=== PATIENT | male | born 1950 | race Caucasian/White ===

== ENCOUNTER 2022-04-04 11:30 | Outpatient (RCR) | payer OTHER, SELFPAY ==
--- NOTE | 2022-02-07 15:08 | ST.OPIE ---
Visit Care Team Role Provider Type Bandar Obrien MD Attending Provider Non-Staff Family Provider Primary Care Provider Referring Provider Specialty: Family Practice Address: [address] , [place], [address] Email: Speech-Language Pathology Initial Evaluation NUTRITION COORDINATOR Motor Speech Evaluation Start: 02/07/22 14:54 Freq: Status: Active Protocol: Document 02/07/22 14:55 ZS (Rec: 02/07/22 15:08 ZS [id number]) Motor Speech Evaluation Session Time Visit Start Time 14:30 Visit Stop Time 14:55 Total Visit Minutes 25 Visit Information Visit Number Initial Evaluation Plan of Care Dates 02/07/2022 - 05/25/2022 Insurance Information [employer] Setting Setting Outpatient Care Next Note Type Next Note Type Treatment Note Patient History Source: [employer] ([employer]). Patient History De is a 71-year-old male who had a stroke on 01/15/22 and was referred to speech therapy due to continued right sided labial weakness. Pt reported weakness and numbness was worse immediately following stroke and had improved, though he is still having difficulty with speech and ROM. Pt added he was having difficulty with swallowing and repeatedly biting his tongue following stroke, but both of these symptoms have resolved at this time. He has an OT evaluation on Friday for his hand and may start receiving PT, but does not currently have PT care established. Referral Referring Physician Dr. Obrien Reason for Referral Right labial weakness/numbness following stroke Mental Status Mental Status Alert,Responsive,Cooperative Subjective Observations Subjective The pt arrived on time accompanied by his , who was not present for the session. Pt agreed to participate in all session activities. Oral Motor Lips Function Moderate Impairment Observation at rest Mild-moderate right drooping Pucker Minimal right drooping Retraction Moderate right weakness Alternating pucker/retraction Moderate right weakness, coordination WNL Involuntary Movement N/A Tongue Function WNL Jaw Function WNL Soft Palate Function WNL Respiration/Phonation Diadochokinetic Rates Speech Intelligibility Awareness/Strategy Use Findings Details Motor Speech Function Moderate Impairment Assessment Details Assessment Completed oral motor assessment with pt. Mild- moderate right-sided labial weakness observed at rest and pt reported reduced sensation on his right side. Pt added he drools about once an hour, always on the right side. Pt added reduced sensation used to contribute to repeated biting of his tongue and difficulty swallowing, though these symptoms have resolved at this point. Tongue elevation was reduced, though WFL. Jaw and tongue strength and ROM were otherwise WNL. Pucker appeared more symmetrical than lip retraction, though minimal right sided weakness was still observed. Intra-oral structures were symmetrical and WNL. Imprecise articulation noted with reduced sensory awareness of lips and right weakness. Provided handout with labial exercises and practiced all exercises. Pt expressed understanding and agreement with POC and demonstrated proficiency in exercises. Recommend speech therapy to improve articulation and labial strength for increased ability to communicate wants and needs, especially in emergency situations as well as for improved comfort with oral intake and saliva management. Prognosis Rehabilitation Potential Good Recommendations Treatment Recommended Yes Frequency 1x/wk Duration 45 minutes Therapy Recommendations Labial exercises to increase right strength and ROM. Short Term Goals 1. Pt will perform exercises to increase strength, coordination, and ROM of lips to improve articulation and increase comfort with oral intake and saliva management. Bee Worker Goals The pt will demonstrate articulatory precision WNL and report saliva management WNL. Patient/Family Education Education Described results of evaluation,Patient Understanding,Patient Demonstration,Patient Needs More Info
--- NOTE | 2022-02-07 15:08 | ST.OPPOC ---
Physical, Occupational & Speech Therapy At [facility] Visit Care Team Role Provider Type Bandar Obrien MD Attending Provider Non-Staff Family Provider Primary Care Provider Referring Provider Address: [address], [place], [address] Speech Pathology Plan of Care Plan of Care Dates 02/07/2022 - 05/25/[address] Obrien Patient History De is a 71-year-old male who had a stroke on 01/15/22 and was referred to speech therapy due to continued right sided labial weakness. Pt reported weakness and numbness was worse immediately following stroke and had improved, though he is still having difficulty with speech and ROM. Pt added he was having difficulty with swallowing and repeatedly biting his tongue following stroke, but both of these symptoms have resolved at this time. He has an OT evaluation on Friday for his hand and may start receiving PT, but does not currently have PT care established. Short Term Goals 1. Pt will perform exercises to increase strength, coordination, and ROM of lips to improve articulation and increase comfort with oral intake and saliva management. Intermediate Goals The pt will demonstrate articulatory precision WNL and report saliva management WNL. Comment: Electronically Signed by: NILES Rea 02/07/22 [id number] If you are in agreement with this Plan of Care, please return a signed and dated copy. I have reviewed this Plan of Care and certify that the skilled therapy services above are required to meet the patient?s needs. Physician Signature Date Printed Name and Credentials Clinical Instructor Signature Printed Name and Credentials
--- NOTE | 2022-02-14 11:02 | ST.OPTN ---
Visit Care Team Role Provider Type Bandar Obrien MD Attending Provider Non-Staff Family Provider Primary Care Provider Referring Provider Address: [facility] [address] [place] [address], [place], [address] PRODUCT INFO SPECIALIST Treatment Note PRODUCT INFO SPECIALIST Treatment Note Start: 02/14/22 10:49 Freq: Status: Active Protocol: Document 02/14/22 10:51 ZS (Rec: 02/14/22 11:02 ZS [id number]) Speech Pathology Treatment Note Session Time Visit Start Time 10:30 Visit Stop Time 10:50 Total Visit Minutes 20 Visit Information Visit Number 1 Plan of Care Dates 02/07/2022 - 05/25/2022 Insurance Information [employer] BC Setting Treatment Setting Outpatient Care Visit Type Note Type Treatment Note Next Note Type Next Note Type Treatment Note General Information Patient History De is a 71-year-old male who had a stroke on 01/15/22 and was referred to speech therapy due to continued right sided labial weakness. Pt reported weakness and numbness was worse immediately following stroke and had improved, though he is still having difficulty with speech and ROM. Pt added he was having difficulty with swallowing and repeatedly biting his tongue following stroke, but both of these symptoms have resolved at this time. He has an OT evaluation on Friday for his hand and may start receiving PT, but does not currently have PT care established. Completed oral motor assessment with pt. Mild-moderate right-sided labial weakness observed at rest and pt reported reduced sensation on his right side. Pt added he drools about once an hour, always on the right side. Pt added reduced sensation used to contribute to repeated biting of his tongue and difficulty swallowing, though these symptoms have resolved at this point. Tongue elevation was reduced, though WFL. Jaw and tongue strength and ROM were otherwise WNL. Pucker appeared more symmetrical than lip retraction, though minimal right sided weakness was still observed. Intraoral structures were symmetrical and WNL. Imprecise articulation noted with reduced sensory awareness of lips and right weakness. Provided handout with labial exercises and practiced all exercises. Pt expressed understanding and agreement with POC and demonstrated proficiency in exercises. Recommend speech therapy to improve articulation and labial strength for increased ability to communicate wants and needs, especially in emergency situations as well as for improved comfort with oral intake and saliva management. Subjective Identification Type Name Identification Reconciled With Medical Record Observations/Patient Presentation De arrived on time and agreed to participate in all session activities. He reported completing HEP 3x/day and improvement in saliva management, with reduced drooling to 2-3x/day rather than once an hour. Chief Complaint(s) Speech,Other Additional Areas of Concern Labial weakness, saliva management Objective Short Term Goals 1. Pt will perform exercises to increase strength, coordination, and ROM of lips to improve articulation and increase comfort with oral intake and saliva management. Retirement Goals The pt will demonstrate articulatory precision WNL and report saliva management WNL. Treatment Activities Practiced oral motor exercises and reviewed strategies for saliva management. Answered pt questions. Discussed POC moving forward (1x per week through , then EOW through the end of the year. May transition to once a month with independence in exercises). Assessment Patient Response to Treatment Good Rehab Potential Good Assessment of Improvement The pt completed all exercises with a written list of each available for review. He referenced the list for each exercises and completed each independently. Pt observed to start with more symmetrical smile and exhibited right drooping while holding the position for 10 seconds. When provided with verbal feedback regarding increased droop while holding, pt implemented feedback and exhibited increased hold for duration of exercise. Pt exhibited difficulty moving mouth to right, often moving to the left instead. When visual feedback via mirror was provided, pt demonstrated increased hold on the right, though continues to demonstrate significant weakness and mouth was in more medial position for this hold . Pt implemented all feedback immediately and demonstrated increased position accuracy with each exercise. Pt to continue HEP with implemented feedback from today's session. Discussed continued use of strategy to swallow periodically to help with saliva management, and pt expressed agreement. Pt to continue with 1x/wk through february and then schedule EOW appointments through the end of the year. May transition to once a month with increased independence in HEP. Reviewed with Patient Goals,Progress Being Made,Home Exercise Program Plan Amount of Therapy Recommended 4 Months Frequency of Treatment Once a Week Length of Session 45 Minutes Therapeutic Contents Client Education,Home Exercise Program,Oral Motor Training Provided Patient/Caregiver Instruction Home Exercise Program,Plan of Care,Questions/Concerns Therapy Recommendations Continue with Current Program
--- NOTE | 2022-02-28 12:12 | ST.OPTN ---
Visit Care Team Role Provider Type Bandar Obrien MD Attending Provider Non-Staff Family Provider Primary Care Provider Referring Provider Address: [facility] [place] [address], [place], [address] CORN POPPER Treatment Note CORN POPPER Treatment Note Start: 02/14/22 10:49 Freq: Status: Active Protocol: Document 02/28/22 12:06 ZS (Rec: 02/28/22 12:12 ZS [id number]) Speech Pathology Treatment Note Session Time Visit Start Time 11:30 Visit Stop Time 11:45 Total Visit Minutes 15 Visit Information Visit Number 2 Plan of Care Dates 02/07/2022 - 05/25/2022 Insurance Information [employer] Setting Treatment Setting Outpatient Care Visit Type Note Type Treatment Note Next Note Type Next Note Type Treatment Note General Information Patient History De is a 71-year-old male who had a stroke on 01/15/22 and was referred to speech therapy due to continued right sided labial weakness. Pt reported weakness and numbness was worse immediately following stroke and had improved, though he is still having difficulty with speech and ROM. Pt added he was having difficulty with swallowing and repeatedly biting his tongue following stroke, but both of these symptoms have resolved at this time. He has an OT evaluation on Friday for his hand and may start receiving PT, but does not currently have PT care established. Completed oral motor assessment with pt. Mild-moderate right-sided labial weakness observed at rest and pt reported reduced sensation on his right side. Pt added he drools about once an hour, always on the right side. Pt added reduced sensation used to contribute to repeated biting of his tongue and difficulty swallowing, though these symptoms have resolved at this point. Tongue elevation was reduced, though WFL. Jaw and tongue strength and ROM were otherwise WNL. Pucker appeared more symmetrical than lip retraction, though minimal right sided weakness was still observed. Intraoral structures were symmetrical and WNL. Imprecise articulation noted with reduced sensory awareness of lips and right weakness. Provided handout with labial exercises and practiced all exercises. Pt expressed understanding and agreement with POC and demonstrated proficiency in exercises. Recommend speech therapy to improve articulation and labial strength for increased ability to communicate wants and needs, especially in emergency situations as well as for improved comfort with oral intake and saliva management. Subjective Identification Type Name Identification Reconciled With Medical Record Observations/Patient Presentation De arrived on time and agreed to participate in all session activities. He reported completing HEP 3x/day and improvement in saliva management, with drooling limited to meals when he is eating high liquid foods (e.g. , soup, cereal with milk). Pt reported his daughter stated his voice had improved. Chief Complaint(s) Speech,Other Additional Areas of Concern Labial weakness, saliva management Objective Short Term Goals 1. Pt will perform exercises to increase strength, coordination, and ROM of lips to improve articulation and increase comfort with oral intake and saliva management. Mcfp Goals The pt will demonstrate articulatory precision WNL and report saliva management WNL. Treatment Activities Practiced oral motor exercises and reviewed strategies for saliva management during meals . Answered pt questions. Discussed POC moving forward ( transitioning to EOW due to independence with exercises and progress since previous session). Assessment Patient Response to Treatment Good Rehab Potential Good Assessment of Improvement The pt completed all exercises based on memory. He completed each independently and demonstrated decreased right labial droop in all exercises. Pt observed to start with more symmetrical smile and exhibited right drooping while holding the position for 10 seconds, though exhibited increased correction of this behavior, especially with visual feedback from mirror. When provided with visual feedback from mirror, pt exhibited increased symmetry and hold for duration of each exercise. Pt exhibited difficulty moving mouth to right, often moving to the left instead. When visual feedback via mirror was provided, pt demonstrated increased hold on the right, though continues to demonstrate significant weakness and mouth was in more medial position for this hold . Pt implemented all feedback immediately and demonstrated increased position accuracy with each exercise. Pt to continue HEP with implemented feedback from today's session. Pt to transition to EOW appointments given independence and progress with exercises. May transition to once a month with increased independence in HEP. Pt expressed understanding and agreement with POC. Reviewed with Patient Goals,Progress Being Made,Home Exercise Program Plan Amount of Therapy Recommended 4 Months Comment EOW Length of Session 45 Minutes Therapeutic Contents Client Education,Home Exercise Program,Oral Motor Training Provided Patient/Caregiver Instruction Home Exercise Program,Plan of Care,Questions/Concerns Therapy Recommendations Continue with Current Program
--- NOTE | 2022-04-04 11:49 | ST.OPDS ---
Visit Care Team Role Provider Type Bandar Obrien MD Attending Provider Non-Staff Family Provider Primary Care Provider Referring Provider Address: [facility] [place] [address], [place], [address] SOIL SCIENCE PROFESSOR Treatment Note SOIL SCIENCE PROFESSOR Treatment Note Start: 02/14/22 10:49 Freq: Status: Active Protocol: Document 04/04/22 11:42 ZS (Rec: 04/04/22 11:49 ZS [id number]) Speech Pathology Treatment Note Session Time Visit Start Time 11:30 Visit Stop Time 11:45 Total Visit Minutes 15 Visit Information Visit Number 3 Plan of Care Dates 02/07/2022 - 05/25/2022 Insurance Information [employer] Setting Treatment Setting Outpatient Care Visit Type Note Type Discharge Summary General Information Patient History De is a 71-year-old male who had a stroke on 01/15/22 and was referred to speech therapy due to continued right sided labial weakness. Pt reported weakness and numbness was worse immediately following stroke and had improved, though he is still having difficulty with speech and ROM. Pt added he was having difficulty with swallowing and repeatedly biting his tongue following stroke, but both of these symptoms have resolved at this time. He has an OT evaluation on Friday for his hand and may start receiving PT, but does not currently have PT care established. Completed oral motor assessment with pt. Mild-moderate right-sided labial weakness observed at rest and pt reported reduced sensation on his right side. Pt added he drools about once an hour, always on the right side. Pt added reduced sensation used to contribute to repeated biting of his tongue and difficulty swallowing, though these symptoms have resolved at this point. Tongue elevation was reduced, though WFL. Jaw and tongue strength and ROM were otherwise WNL. Pucker appeared more symmetrical than lip retraction, though minimal right sided weakness was still observed. Intra-oral structures were symmetrical and WNL. Imprecise articulation noted with reduced sensory awareness of lips and right weakness. Provided handout with labial exercises and practiced all exercises. Pt expressed understanding and agreement with POC and demonstrated proficiency in exercises. Recommend speech therapy to improve articulation and labial strength for increased ability to communicate wants and needs, especially in emergency situations as well as for improved comfort with oral intake and saliva management. Subjective Identification Type Name Identification Reconciled With Medical Record Observations/Patient Presentation De arrived on time and agreed to participate in all session activities. He reported completing HEP 2-3x/ day with significant improvement in saliva management and speech. De reported several individuals have commented on the improvement in De's speech . De added his speech is at baseline in the mornings and increased slurring and weakness returns by mid- afternoon. Chief Complaint(s) Speech,Other Additional Areas of Concern Labial weakness, saliva management Objective Short Term Goals 1. Pt will perform exercises to increase strength, coordination, and ROM of lips to improve articulation and increase comfort with oral intake and saliva management. Marine Diesel Mechanic Goals The pt will demonstrate articulatory precision WNL and report saliva management WNL. Treatment Activities Practiced oral motor exercises . Discussed discharge from speech therapy due to progress made, independence in HEP, and pt request (for time and resource conservation due to long drive). Pt expressed agreement and understanding. Assessment Patient Response to Treatment Good Rehab Potential Good Progress Towards Goals Goals Met,Appropriate for Discharge Assessment of Overall Progress Improving Assessment of Improvement The pt completed all exercises based on memory with increased strength and symmetry noted through all movements. He completed each independently and demonstrated significant decrease in right labial droop in all exercises . Lips were symmetrical at rest with mild weakness during smile, though pt sustained symmetrical smile for increased duration today. Features were symmetrical for duration of smile/pucker exercise. Continued difficulty with right lateralization of lips, though pt exhibited increased awareness and consistency once correct placement was located. Discharging from speech therapy as pt is independent in HEP, has demonstrated significant improvement, and to reduce commute and cost with long drive to therapy. Recommended pt continue with HEP 2-3x daily for increased strength and stamina in clear speech through the day. Pt expressed understanding and agreement with POC. Reviewed with Patient Goals,Progress Being Made,Home Exercise Program Plan Amount of Therapy Recommended No Further Therapy Frequency of Treatment No Further Therapy Therapeutic Contents Client Education,Home Exercise Program,Oral Motor Training Provided Patient/Caregiver Instruction Home Exercise Program,Plan of Care,Questions/Concerns Therapy Recommendations Discharge to Home Exercise Program,Discharge from Speech Therapy Reason for Discharge Pt met all goals and is independent with HEP.
== END 2022-04-04 11:57 ==
LOC: SP 11:30
PROVIDERS: Family Provider Student in an Organized Health Care Education/Training Program; PCP Student in an Organized Health Care Education/Training Program; Referring Provider Student in an Organized Health Care Education/Training Program; Visit Provider Student in an Organized Health Care Education/Training Program
DX: I63.9 Cerebral infarction, unspecified (principal)
CPT/HCPCS: 92507; 92522